=== PATIENT | female | born 1995 | race Caucasian/White ===

== ENCOUNTER 2023-11-19 18:34 | Emergency (ER) | payer MEDICAID ==
[~2023-11-19] VITALS: Ht 152.4 cm; Wt 72.7 kg
[2023-11-19] MEDS: methylPREDNISolone sod succ 125mg/2ml vial IV ONE (20:01)
[2023-11-19] MEDS: albuterol 2.5 MG/3 ML nebule CONTNEB PRN (20:08)
[2023-11-19 20:12] VITALS: PULSE 95; RESP 22; O2SAT 98
[2023-11-19 20:30] VITALS: TEMP 98.1
[2023-11-19 20:32] LABS: BASOPHILS # (AUTO) 0.1 X10'3 (0-0.2); BASOPHILS % (AUTO) 0.7 % (0-1); EOSINOPHILS # (AUTO) 1.1 X10'3 (0-0.9); EOSINOPHILS % (AUTO) 9.8 % (0-6); HEMATOCRIT 43.3 % (35.0-45.0); HEMOGLOBIN 14.7 g/dl (12.0-16.0); LYMPHOCYTES # (AUTO) 3.2 X10'3 (1.1-4.8); LYMPHOCYTES % (AUTO) 28.6 % (21-51); MEAN CORPUSCULAR HEMOGLOBIN 29.9 PG (27.0-31.0); MEAN CORPUSCULAR VOLUME 87.9 FL (78-98); MEAN PLATELET VOLUME 7.9 FL (7.4-10.4); MONOCYTES # (AUTO) 0.6 X10'3 (0-0.9); MONOCYTES % (AUTO) 5.7 % (2-12); NEUTROPHILS # (AUTO) 6.1 X10'3 (1.8-7.7); NEUTROPHILS % (AUTO) 55.2 % (42-75); PLATELET COUNT 332 X10'3 (140-440); RED BLOOD COUNT 4.92 X10'6 (4.20-5.60); RED CELL DISTRIBUTION WIDTH 14.1 % (11.5-14.5); WHITE BLOOD COUNT 11.1 X10'3 (4.5-11.0)
[2023-11-19 20:39] LABS: ANION GAP 10 (8-16); BLOOD UREA NITROGEN 10 MG/DL (7-18); BUN/CREATININE RATIO 12.5 (10.0-20.0); CALCIUM 9.1 MG/DL (8.5-10.1); CHLORIDE 103 MMOL/L (99-107); GLUCOSE 85 MG/DL (70-104); POTASSIUM 3.6 MMOL/L (3.5-5.1); SODIUM 138 MMOL/L (135-145); TOTAL CARBON DIOXIDE 25.4 MMOL/L (24-32); eCRCL 75 ML/MIN; eGFR 85 ML/MIN
[2023-11-19] MEDS: LORazepam 2 mg/ml vial IV ONE (20:40)
[2023-11-19 21:10] VITALS: PULSE 120; RESP 20; O2SAT 99
[2023-11-19 21:30] VITALS: BP 132/87; PULSE 120; RESP 20; O2SAT 94
[2023-11-19] MEDS ORDERED: PRED20TA PO (21:45)
[2023-11-19] MEDS ORDERED: ADV50250 INH (21:45)
[2023-11-21] MEDS ORDERED: ALBU8HFA PO (18:10)
== END 2023-11-19 21:52 | disposition home or self-care (01) ==
LOC: ER 18:36
DX: J45.909 Unspecified asthma, uncomplicated (principal); Z88.8 Allergy status to other drugs, medicaments and biological substances; Z79.899 Other long term (current) drug therapy
CPT/HCPCS: 36415; 71045; 80048; 85025; 87502; 87503; 94640; 94644; 96374; 96375; 99285; J2060; J2930; 94760; A7015

== ENCOUNTER 2024-03-14 15:07 | Emergency (ER) | payer MEDICAID ==
[~2024-03-14] VITALS: Ht 152.4 cm; Wt 68.0 kg
[2024-03-14] MEDS: LORazepam 1 MG tablet PO ONE (16:55)
[2024-03-14 17:08] VITALS: BP 134/93; PULSE 97; RESP 17; TEMP 98.7; O2SAT 98
[2024-03-14] MEDS ORDERED: ALBU8HFA INH (17:29)
[2024-03-14] MEDS ORDERED: LORA-269 PO (17:29)
== END 2024-03-14 17:52 | disposition home or self-care (01) ==
LOC: ER 15:08
DX: F41.9 Anxiety disorder, unspecified (principal); F41.0 Panic disorder [episodic paroxysmal anxiety]; Z88.8 Allergy status to other drugs, medicaments and biological substances
CPT/HCPCS: 99283

== ENCOUNTER 2024-06-14 13:43 | Emergency (ER) | payer MEDICAID ==
[~2024-06-14] VITALS: Ht 152.4 cm; Wt 67.0 kg
[~2024-06-14 13:43] MED LIST: LORA-269 PO
[2024-06-14 13:45] VITALS: TEMP 97.1
[2024-06-14 14:19] LABS: BASOPHILS % (AUTO) 0.5 % (0-1); EOSINOPHILS % (AUTO) 12.5 % (0-6); HEMATOCRIT 42.3 % (35.0-45.0); HEMOGLOBIN 14.2 g/dl (12.0-16.0); LYMPHOCYTES # (AUTO) 2.4 X10'3 (1.1-4.8); LYMPHOCYTES % (AUTO) 29.6 % (21-51); MEAN CORPUSCULAR HGB CONC 33.6 g/dL (33.0-36.5); MEAN CORPUSCULAR VOLUME 89.3 FL (78-98); MEAN PLATELET VOLUME 7.4 FL (7.4-10.4); MONOCYTES # (AUTO) 0.5 X10'3 (0-0.9); MONOCYTES % (AUTO) 5.8 % (2-12); NEUTROPHILS # (AUTO) 4.1 X10'3 (1.8-7.7); NEUTROPHILS % (AUTO) 51.6 % (42-75); PLATELET COUNT 314 X10'3 (140-440); RED BLOOD COUNT 4.73 X10'6 (4.20-5.60); RED CELL DISTRIBUTION WIDTH 13.4 % (11.5-14.5)
[2024-06-14 14:32] LABS: ALANINE AMINOTRANSFERASE 20 U/L (12-78); ALBUMIN 3.9 G/DL (3.4-5.0); ALKALINE PHOSPHATASE 91 IU/L (46-116); ANION GAP 11 (8-16); ASPARTATE AMINO TRANSFERASE 23 U/L (10-37); BLOOD UREA NITROGEN 8 MG/DL (7-18); BUN/CREATININE RATIO 11.3 (10.0-20.0); CALCIUM 8.9 MG/DL (8.5-10.1); CHLORIDE 105 MMOL/L (99-107); CREATININE 0.71 MG/DL (0.40-0.90); GLUCOSE 81 MG/DL (70-104); POTASSIUM 3.7 MMOL/L (3.5-5.1); SODIUM 140 MMOL/L (135-145); TOTAL CARBON DIOXIDE 24.5 MMOL/L (24-32); eCRCL 84 ML/MIN; eGFR > 90 ML/MIN
[2024-06-14 14:41] LABS: PRO BRAIN NATRIURETIC PEPTIDE < 30 PG/ML (0-125)
[2024-06-14 18:39] VITALS: PULSE 117; RESP 24; O2SAT 94
[2024-06-14] MEDS: ipratropium/albuterol 3ml nebule NEB STA (18:39)
[2024-06-14 18:44] VITALS: PULSE 94; RESP 20; O2SAT 98
[2024-06-14] MEDS: dexamethasone sod phosphate 10mg/ml inj IM STA (18:45)
[2024-06-14] MEDS: magnesium sulf-water 2g/50mL 50 ML IV ONE (19:07)
[2024-06-14] MEDS ORDERED: PRED50TA PO (21:01)
[2024-06-14] MEDS: LORazepam 2 mg/ml vial IV ONE (21:30)
[2024-06-14] MEDS ORDERED: ALBU8HFA INH (21:38)
[2024-06-14] MEDS ORDERED: ADV50250 INH (21:38)
[2024-06-14 21:51] VITALS: BP 124/88; PULSE 100; RESP 17; O2SAT 94
== END 2024-06-14 21:54 | disposition home or self-care (01) ==
LOC: ER 13:44
DX: R06.02 Shortness of breath (principal); J45.901 Unspecified asthma with (acute) exacerbation; I49.8 Other specified cardiac arrhythmias; Z88.8 Allergy status to other drugs, medicaments and biological substances; Z79.899 Other long term (current) drug therapy
CPT/HCPCS: 36415; 71045; 80053; 83880; 84484; 85025; 93005; 94640; 96365; 96366; 96372; 96375; 99285; J1100; J2060

== ENCOUNTER 2024-11-24 17:25 | Emergency (ER) | payer MEDICAID ==
[~2024-11-24] VITALS: Ht 152.4 cm; Wt 63.3 kg
[~2024-11-24 17:25] MED LIST changes: +PRED50TA PO
[2024-11-24 17:41] VITALS: BP 127/99; PULSE 95; RESP 16; O2SAT 99
[2024-11-24 19:26] LABS: BASOPHILS % (AUTO) 0.5 % (0-1); EOSINOPHILS # (AUTO) 0.3 X10'3 (0-0.9); EOSINOPHILS % (AUTO) 3.1 % (0-6); HEMATOCRIT 40.2 % (35.0-45.0); HEMOGLOBIN 13.8 g/dl (12.0-16.0); LYMPHOCYTES # (AUTO) 2.1 X10'3 (1.1-4.8); LYMPHOCYTES % (AUTO) 20.8 % (21-51); MEAN CORPUSCULAR HEMOGLOBIN 30.4 PG (27.0-31.0); MEAN CORPUSCULAR HGB CONC 34.4 g/dL (33.0-36.5); MEAN CORPUSCULAR VOLUME 88.3 FL (78-98); MONOCYTES # (AUTO) 0.6 X10'3 (0-0.9); MONOCYTES % (AUTO) 5.5 % (2-12); NEUTROPHILS # (AUTO) 7.1 X10'3 (1.8-7.7); NEUTROPHILS % (AUTO) 70.1 % (42-75); PLATELET COUNT 311 X10'3 (140-440); RED BLOOD COUNT 4.55 X10'6 (4.20-5.60); RED CELL DISTRIBUTION WIDTH 13.3 % (11.5-14.5); WHITE BLOOD COUNT 10.1 X10'3 (4.5-11.0)
[2024-11-24 20:01] LABS: ALBUMIN 3.1 G/DL (3.4-5.0); ANION GAP 7 (8-16); BLOOD UREA NITROGEN 3 MG/DL (7-18); BUN/CREATININE RATIO 7.3 (10.0-20.0); CALCIUM 8.4 MG/DL (8.5-10.1); CHLORIDE 104 MMOL/L (99-107); CREATININE 0.41 MG/DL (0.40-0.90); GLUCOSE 78 MG/DL (70-104); POTASSIUM 3.5 MMOL/L (3.5-5.1); SODIUM 137 MMOL/L (135-145); TOTAL CARBON DIOXIDE 25.6 MMOL/L (24-32); eCRCL 144 ML/MIN; eGFR > 90 ML/MIN
[2024-11-24 20:02] LABS: BETA HCG,QUANTITATIVE 27448 mIU/ml
[2024-11-24 20:28] VITALS: TEMP 99.4
== END 2024-11-24 20:29 | disposition home or self-care (01) ==
LOC: ER 17:26
DX: O26.892 Other specified pregnancy related conditions, second trimester (principal); Z88.8 Allergy status to other drugs, medicaments and biological substances; Z3A.16 16 weeks gestation of pregnancy
CPT/HCPCS: 36415; 76805; 80048; 84702; 85025; 86900; 86901; 99284